=== PATIENT | female | born 1950 | race Caucasian/White ===

== ENCOUNTER 2020-01-31 12:09 | Emergency (ER) | payer MEDICARE, BC ==
[~2020-01-31] VITALS: Ht 160 cm; Wt 77.3 kg
[2020-01-31 12:17] VITALS: BP 145/68
[2020-01-31] MEDS ORDERED: HYDROcodone/acetaminophen 5mg/325mg tablet PO ONE (14:05)
[2020-01-31] MEDS ORDERED: HYDR-3965 PO (15:32)
== END 2020-01-31 15:41 | disposition home or self-care (01) ==
LOC: ER 12:09
DX: S82.842A Displaced bimalleolar fracture of left lower leg, initial encounter for closed fracture (principal); M81.0 Age-related osteoporosis without current pathological fracture; Z98.890 Other specified postprocedural states; Z79.899 Other long term (current) drug therapy; X58.XXXA Exposure to other specified factors, initial encounter; Y93.89 Activity, other specified; Y92.89 Other specified places as the place of occurrence of the external cause; Y99.8 Other external cause status
CPT/HCPCS: 29515; 73610; 99284

== ENCOUNTER 2020-02-08 09:55 | Outpatient (CLI) | payer MEDICARE, BC ==
[~2020-02-08 09:55] MED LIST: HYDR-3965 PO
[2020-02-08] MEDS ORDERED: LEVO75TA PO (13:17)
[2020-02-08] MEDS ORDERED: HYDR-3964 PO (13:17)
== END 2020-02-08 23:59 | disposition home or self-care (01) ==
LOC: 64 CT 09:55
PROVIDERS: ATTEND Podiatrist Foot & Ankle Surgery
DX: S82.52XA Displaced fracture of medial malleolus of left tibia, initial encounter for closed fracture (principal); S82.252A Displaced comminuted fracture of shaft of left tibia, initial encounter for closed fracture; S82.832A Other fracture of upper and lower end of left fibula, initial encounter for closed fracture; X58.XXXA Exposure to other specified factors, initial encounter; Y93.89 Activity, other specified; Y92.89 Other specified places as the place of occurrence of the external cause; Y99.8 Other external cause status
CPT/HCPCS: 73700

== ENCOUNTER 2020-02-12 10:39 | Day surgery (SDC) | payer MEDICARE, BC ==
[2020-02-08 11:37] LABS: BASOPHILS # (AUTO) 0.1 X10'3 (0-0.2); BASOPHILS % (AUTO) 0.7 % (0-1); EOSINOPHILS # (AUTO) 0.1 X10'3 (0-0.9); EOSINOPHILS % (AUTO) 1.3 % (0-6); LYMPHOCYTES % (AUTO) 12.3 % (21-51); MEAN CORPUSCULAR VOLUME 85.3 FL (78-98); MEAN PLATELET VOLUME 7.7 FL (7.4-10.4); MONOCYTES # (AUTO) 0.7 X10'3 (0-0.9); MONOCYTES % (AUTO) 8.9 % (2-12); NEUTROPHILS # (AUTO) 6.1 X10'3 (1.8-7.7); NEUTROPHILS % (AUTO) 76.8 % (42-75); PRE OP HEMATOCRIT 38.6 % (35.0-45.0); PRE OP HEMOGLOBIN 13.2 g/dL (12.0-16.0); PRE OP PLATELET COUNT 462 X10'3 (140-440); RED BLOOD COUNT 4.53 X10'6 (4.20-5.60); RED CELL DISTRIBUTION WIDTH 13.7 % (11.5-14.5)
[2020-02-08 11:40] LABS: CLARITY,URINE SLIGHTLY CLOUDY (Clear); COLOR,URINE YELLOW (Yellow); GLUCOSE, URINE NEGATIVE (Neg); KETONES,URINE NEGATIVE (Neg); LEUKOCYTE ESTERASE ,URINE SMALL (Neg); NITRITES, URINE NEGATIVE (Neg); OCCULT BLOOD,URINE NEGATIVE (Neg); PROTEIN,URINE NEGATIVE (Neg)
[2020-02-08 11:54] LABS: ALBUMIN 3.4 G/DL (3.4-5.0); ALBUMIN/GLOBULIN RATIO 0.9 (1.1-1.5); ALKALINE PHOSPHATASE 91 IU/L (46-116); BLOOD UREA NITROGEN 21 MG/DL (7-18); BUN/CREATININE RATIO 26.6 (6.6-38.0); CALCIUM 8.7 MG/DL (8.5-10.1); CHLORIDE 104 MMOL/L (99-107); CREATININE 0.79 MG/DL (0.40-0.90); PRE OP ALT 22 U/L (30-65); PRE OP ANION GAP 8 (8-16); PRE OP AST 14 U/L (10-37); PRE OP BILIRUB, TOTAL 0.6 MG/DL (0.0-1.0); PRE OP GLUCOSE 97 MG/DL (70-104); PRE OP POTASSIUM 3.7 MMOL/L (3.4-5.1); PRE OP SODIUM 140 MMOL/L (135-145); TOTAL CARBON DIOXIDE 27.7 MMOL/L (24-32); TOTAL PROTEIN 7.1 G/DL (6.4-8.2); eGFR 72 ML/MIN
[2020-02-08 12:00] LABS: UA COLLECTION TYPE CLN CATCH MIDSTREAM
[2020-02-08 12:01] LABS: MUCUS STRANDS MANY /LPF (Neg); SQUAMOUS EPITHELIAL CELL,UR MANY /LPF (FEW)
[2020-02-08 12:03] LABS: BACTERIA,URINE FEW /HPF (Neg); RBC,URINE NONE SEEN /HPF (0-2); TRANSITIONAL EPI CELLS,URINE FEW /HPF; WBC,URINE 0-4 /HPF (0-4)
[2020-02-12] VITALS (12 sets, daily range): BP systolic 122–160; BP diastolic 50–97
[~2020-02-12] VITALS: Ht 160 cm; Wt 97.7 kg
[~2020-02-12 10:39] MED LIST changes: +HYDR-3964 PO; -HYDR-3965 PO; +LEVO75TA PO; +cefazolin/dext.iso 2gm/50ml 50 ML IV ONE; +famotidine 20mg tablet PO ONE; +ringers solution, lacted 1,000 ML IV SCH; +vancomycin 1,500 MG in NS 300ml IV soln IV ONE
[2020-02-12] MEDS ORDERED: ROPIVAcaine 0.5% (5mg/ml) 30ml vial ONE (13:17)
[2020-02-12] MEDS ORDERED: fentaNYL/PF 50MCG/1 ML 2ML syringe ONE (13:17)
[2020-02-12] MEDS ORDERED: MIDAZolam 5mg/5ml vial ONE (13:17)
[2020-02-12] MEDS ORDERED: propofol inj 20 ML IV ONE (13:30)
[2020-02-12] MEDS ORDERED: rocuronium 10mg/ml inj IV ONE (13:32)
[2020-02-12] MEDS ORDERED: sevoflurane 250ml liquid IH ONE (13:32)
[2020-02-12] MEDS ORDERED: LIDOcaine 1%/PF 5ML 10 MG/ML VIAL ONE (13:32)
[2020-02-12] MEDS ORDERED: ROPIVAcaine 0.2% (10 MG/5 ML) BOLUS INJECTION POPLITEAL PRN (14:50)
[2020-02-12] MEDS ORDERED: ROPIVAcaine 0.2%/PF PUMP/bolus 550 ML POPLITEAL SCH (14:50)
[2020-02-12] MEDS ORDERED: morphine 4 MG/ML inj SYRINge IV PRN (14:50)
[2020-02-12] MEDS ORDERED: morphine 2 MG/ML inj. syringe IV PRN (14:50)
[2020-02-12] MEDS ORDERED: proCHLORperazine 10 MG/2 ml inj IV PRN (14:50)
[2020-02-12] MEDS ORDERED: meperidine/PF 25mg/ml syringe IV PRN ×3 (14:50)
[2020-02-12] MEDS ORDERED: ondansetron/PF 4mg/2ml inj IV PRN (14:50)
[2020-02-12] MEDS ORDERED: ringers solution, lacted 1,000 ML IV SCH (14:50)
[2020-02-12] MEDS ORDERED: dexamethasone sod phosphate 4mg/ml inj. ONE (16:04)
[2020-02-12] MEDS ORDERED: ondansetron/PF 4mg/2ml inj ONE (16:04)
[2020-02-12] MEDS ORDERED: bacitracin 15gm ointment TP ONE (16:04)
[2020-02-12] MEDS ORDERED: acetaminophen 1,000mg/100ml IV 100 ML IV ONE (16:06)
--- NOTE | 2020-02-12 16:30 | NUR ---
Received from OR via [facility], accompanied by Anesthesiologist Dr Maxwell and report given by Anesthesiolgist. PATIENT DENIES PAIN, V/S WNL, mask on at 10L , neuorvascularly intact 20G PIV LR at 100cc/hr, SCD ON right leg. Will monitor closely. ON-Q catheter in place will connect to medicine. Toes good cap refill to lower extremity.
--- NOTE | 2020-02-12 19:10 | NUR ---
Pt discharged to vehicle by wheelchair without incident. Prior to DC pt tolerated fluids, standing and pivoting, and voiding. Pt had IV DC'd and all belongings returned to her. She verbalized understanding of discharge instructions including extensive education on use of ON-Q pain meds, as did at vehicle upon further description and demonstration. Pt has other pain meds at home from [facility] for breakthrough pain. She knows to follow up and already has an appointment.
== END 2020-02-12 19:10 | disposition home or self-care (01) ==
LOC: PAS 10:39
PROVIDERS: ATTEND Podiatrist Foot & Ankle Surgery
DX: S82.872A Displaced pilon fracture of left tibia, initial encounter for closed fracture (principal); Z20.828 Contact with and (suspected) exposure to other viral communicable diseases; G89.18 Other acute postprocedural pain; M79.605 Pain in left leg; Z79.899 Other long term (current) drug therapy; W19.XXXA Unspecified fall, initial encounter; Y93.89 Activity, other specified; Y92.89 Other specified places as the place of occurrence of the external cause; Y99.8 Other external cause status
CPT/HCPCS: 27828; 36415; 64446; 64448; 73600; 76000; 80053; 81001; 82948; 85025; 87635; 93005; A6223; C1713; J0131; J1100; J2250; J2405; J2704; J2795; J3010; J3370; J7040; 76942; A4215; A4618; A6449; A7000; J7120

== ENCOUNTER 2023-03-04 13:27 | Emergency (ER) | payer MEDICARE, BC ==
[~2023-03-04] VITALS: Ht 161.3 cm; Wt 75.9 kg
[~2023-03-04 13:27] MED LIST changes: -cefazolin/dext.iso 2gm/50ml 50 ML IV ONE; -famotidine 20mg tablet PO ONE; -ringers solution, lacted 1,000 ML IV SCH; -vancomycin 1,500 MG in NS 300ml IV soln IV ONE
[2023-03-04 13:45] VITALS: RESP 19
[2023-03-04 15:39] VITALS: BP 157/75; PULSE 89; TEMP 96.5; O2SAT 99
[2023-03-04] MEDS ORDERED: ketorolac trometh. 30mg/ml inj. IM STA (17:36)
[2023-03-04] MEDS ORDERED: IBUP-1984 PO (17:48)
== END 2023-03-04 19:09 | disposition home or self-care (01) ==
LOC: ER 13:28
DX: S93.491A Sprain of other ligament of right ankle, initial encounter (principal); M25.512 Pain in left shoulder; X58.XXXA Exposure to other specified factors, initial encounter; Y93.89 Activity, other specified; Y92.89 Other specified places as the place of occurrence of the external cause; Y99.9 Unspecified external cause status
CPT/HCPCS: 29540; 73030; 73610; 96372; 99284; J1885; L1930; 29515; A4565